=== PATIENT | male | born 1995 | race African-American/Black ===

== ENCOUNTER 2021-01-08 01:08 | Emergency (ER) | payer MEDICAID, OTHER ==
[~2021-01-08] VITALS: Ht 180.3 cm; Wt 91.0 kg
[2021-01-08] MEDS ORDERED: LORAZEPAM 2MG/ML CPJ IV ONE (01:30)
[2021-01-08] MEDS ORDERED: SODIUM CHLORIDE 0.9% 1,000 ML IV ONE (01:30)
[2021-01-08] MEDS ORDERED: ONDANSETRON HCL 4MG/2ML INJ IV ONE (01:30)
[2021-01-08] MEDS ORDERED: OLANZAPINE 10 MG/VIAL IM ONE (01:45)
[2021-01-08 03:20] LABS: HEMATOCRIT. 40.2 % (42.0-52.0); HEMOGLOBIN. 14.1 g/dL (14.0-18.0); MEAN CORPUSCULAR HEMOGLOBIN 32.2 pg (28.0-32.0); MEAN CORPUSCULAR VOLUME 91.9 fL (80.0-94.0); PLATELET 295 x1000/uL (130-400); RED BLOOD CELL COUNT 4.37 mill/uL (4.7-6.1)
[2021-01-08 03:28] LABS: CHLORIDE 106 mEq/L (98-107)
[2021-01-08 03:32] LABS: ETHANOL BLOOD < 10 mg/dL
[2021-01-08 05:27] VITALS: BP 123/62
[2021-01-08 07:11] LABS: PLATELET ESTIMATE NORMAL
== END 2021-01-08 10:31 | disposition home or self-care (01) ==
LOC: ER 01:08
DX: F19.10 Other psychoactive substance abuse, uncomplicated (principal); R41.82 Altered mental status, unspecified; F12.10 Cannabis abuse, uncomplicated; Z78.1 Physical restraint status
CPT/HCPCS: 36415; 80053; 80307; 80320; 80329; 85025; 93005; 96361; 96372; 96374; 99284; J2060; J3490; J7030; Z7610; G0480